=== PATIENT | female | born 1955 | race Caucasian/White ===

== ENCOUNTER 2016-05-18 09:38 | Emergency (ER) | payer OTHER ==
[2016-05-18] MEDS ORDERED: KETOROLAC 15 MG/1 ML VIAL IVP ONE (09:59)
[2016-05-18] MEDS: NORMAL SALINE 10 ML SYRINGE FLUSH IVP PRN ×3 (10:05→10:42)
--- NOTE | 2016-05-18 10:08 | PDOC ---
Hip Injury/Pain HPI - General Chief Complaint: Lower Extremity Problem/Injury Stated Complaint: RIGHT HIP PAIN Date Seen by Provider: 05/18/16 Time Seen by Provider: 10:03 - History of Present Illness Initial Comments: Patient is a very nice 60-year-old woman who presents to the emergency department with complaints of right-sided hip pain. She has history of depression GERD potential fibromyalgia and migraine headaches. She does not take any chronic pain medication. She does take several medications for prophylaxis for her migraines. She states her symptoms started about 3 days ago where she had some subtle pain more in her buttocks that in her hip on the right side. She did not have any injury or any sort of mechanical basis for this pain to start. This has slowly progressed but today has become much worse. She is denying any fever or chills. She does not have any history of inflammatory joint disorders or diseases at all. She has never injured this hip in the past. She does state that it is difficult to bear weight today but when the pain first started bearing weight was not necessarily that painful. He denies any other significant acute issues. Have you received a tetanus shot in the past 10 years?: Yes - Patient Home Medications Home Medications: Home Medications Aspirin [Aspir 81] 81 mg PO DAILY tab 09/07/13 Topiramate [Topamax] 1.5 tab PO QHS tab 09/07/13 Vitamin B Complex [Super B-50 Complex] 1 each PO DAILY cap 09/07/13 Potassium Gluconate [Potassium] 1 tab PO QD unit 01/15/14 Vilazodone Hydrochloride [Viibryd] 1 tab PO QD tab 01/15/14 Bianca [place]/Linoleic/Gamoleni [Evening [place] 1,000 Mg Sftg] 1 cap PO QD PRN cap 11/04/15 Vitamin E Mixed [Vitamin E] 1 cap PO QD cap 11/04/15 Cyclobenzaprine HCl [Flexeril] 10 mg PO TID PRN #30 tab 05/18/16 Hydrocodone/Acetaminophen [[place] 5-325 Tablet] 1 - 2 tab PO Q4H PRN #20 tab 05/01 Ibuprofen 600 mg PO TID PRN #60 ml 05/18/16 - Patient Allergies Allergies/Adverse Reactions: Allergies Allergy/AdvReac Type Severity Reaction Status Date / Time meperidine HCl [From Demerol] Allergy Severe Anaphylactic Verified 05/18/16 09: 49 reaction lorazepam Allergy Intermediate Falls and Verified 05/18/16 09:49 affects her mental status. Past Medical History - heen HEENT History: Recurrent Ear Infections, Hard of Hearing Additional HEENT History: Wears contacts. Cardiovascular History: Denies History Respiratory History: Asthma Gastrointestinal History: Denies History Genitourinary History: Denies History Endocrine History: Denies History Musculoskeletal History: Denies History Prosthesis or Implant: No Neurological History: Denies History Blood Disorders: Denies History Psychiatric History: Depression History of Sexually Transmitted Diseases: No Cancer History: Other (please comment) History of MDRO: No History of Other Communicable Diseases: No Alcohol Use: None Substance Use Type: None Previous Surgical History: Yes Type / Date of Surgery: TONSILLECTOMY, APPENDECTOMY, CHOLECYSTECTOMY, TOTAL HYSTERECTOMY Anesthesia Reactions: No Malignant Hyperthermia: No Significant Family History: Cancer, COPD, Diabetes Additional Family History: Cancer, Past Medical History Reviewed: Reviewed - No Changes ROS Constitution: REPORTS: Denies Symptoms Cardiovascular: REPORTS: Denies Cardiac Symptoms Respiratory: REPORTS: Denies Resp Symptoms Neurological: REPORTS: Denies Neuro Symptoms Hip Injury / Pain Exam - General Appearance General Appearance: POSITIVE: Cooperative, No Acute Distress - Lower Extremity Extremities: POSITIVE: Other (She has minimal tenderness with internal/external rotation of the right leg. There is actually no clear area where pressure or palpation causes a significant pain in the buttocks or hip. Certainly no symptoms in her groin. She has no pain symptoms down her leg no numbness tingling no loss of bowel or bladder continence or other signs of cauda equina syndrome either. However she does have significant pain simply at rest lying on the bed.) - HEENT HEENT: POSITIVE: Head Inspection Nml, Eyes Inspection Nml - Neck/Back Neck: POSITIVE: Normal Inspection Back: POSITIVE: Normal Inspection - Respiratory / CVS Cardiovascular: POSITIVE: Regular Rate and Rhythm, Heart Sounds Normal Respiratory: POSITIVE: No Respiratory Distress - Abdomen Abdomen: Soft: (All Quadrants), Normal Bowel Sounds: (All Quadrants), Denies Tenderness: (All Quadrants) - Skin Skin: POSITIVE: Color Normal, No Rash - Neuro/Psych Neuro / Psych: POSITIVE: Oriented x 3 Hip Injury / Pain Progress - Results Reviewed by me Xrays/CTs/US Reviewed by me: Yes Radiology Findings: No obvious fracture Lab Results Reviewed: Yes Lab Results:: Laboratory Results 05/18/16 Range/Units 10:04 WBC 6.77 (4.8-10.8) 10^3/uL RBC 4.72 (4.20-5.40) 10^6/uL Hgb 14.8 (12.0-16.0) g/dL Hct 43.0 (37.0-47.0) % MCV 91.1 (81-99) FL MCH 31.4 H (27-31) PG MCHC 34.4 (33-37) g/dL RDW Std Deviation 40.1 (39-50) fL RDW Coeff of Shaina 12.4 (11.5-14.5) % Plt Count 221 (140-350) 10*3/uL MPV 9.9 (7.4-12.2) FL Immature Gran % (Auto) 0.1 (0-5) % Neut % (Auto) 54.7 (50-80) % Lymph % (Auto) 29.0 (10-50) % [place] % (Auto) 8.4 (5-15) % Eos % (Auto) 7.4 (0-8) % Baso % (Auto) 0.4 (0-1) % Immature Gran # (Auto) 0.01 10*3/UL Neut # (Auto) 3.70 10*3/UL Lymph # (Auto) 1.96 10*3/uL [place] # (Auto) 0.57 (0.3-0.8) 10*3/UL Eos # (Auto) 0.50 10*3/UL Baso # (Auto) 0.03 10*3/UL WBC Morphology Comment Normal morphology (NORM) Plt Morphology Comment Normal morphology (NORM) RBC Morph Comment Normal morphology (NORM) ESR 10 (0-20) MM/HR Sodium 144 (135-145) meq/L Potassium 3.6 L (3.8-5.2) meq/L Chloride 111 (98-112) meq/L Carbon Dioxide 21 L (23-33) meq/L Anion Gap 12 (5-20) BUN 11 (7-22) mg/dL Creatinine 1.0 (0.50-1.20) mg/dL Estimated GFR 57 (>60 ml/min/1.73m(2)) BUN/Creatinine Ratio 11.00 (6-20) Glucose 82 (78-110) mg/dL Calculated Osmolality 295.0 H (267-292) mOsm/kg Calcium 9.3 (8.7-10.7) mg/dL Total Bilirubin 0.7 (0.3-1.2) mg/dL AST 23 (8-39) IU/L ALT 22 (9-52) IU/L Alkaline Phosphatase 95 (38-126) IU/L C-Reactive Protein < 0.5 (0.0-0.9) mg/dL Total Protein 7.7 (6.1-8.0) g/dL Albumin 4.2 (3.5-4.8) g/dL Globulin 3.5 (2.50-4.10) g/dL Albumin/Globulin Ratio 1.20 L (1.3-2.0) mg/g - Patient's Progress MDM / ED Course: This patient presents with hip pain. I see no evidence of fracture no evidence of septic arthritis or other more concerning etiology for her hip pain. She is tender towards the outside of the hip over the trochanter I think she likely has a bursitis there. Treat her conservatively of asked her to follow-up with her primary care provider in the near future to discuss her symptoms if they do not resolve fairly rapidly. Patient Care Time - Estimated PCT Patient Care Time (In Minutes): 35 Vital Signs - VS Reviewed Vital Signs Reviewed: Yes (vitals are benign at the time of my exam) Discharge Clinical Impression: Hip pain Qualifiers: Laterality: right Qualifier Code: (M25.551) Pain in right hip Trochanteric bursitis Qualifiers: Laterality: right Qualifier Code: (M70.61) Trochanteric bursitis, right hip Discharge Disposition: Discharged to Home Condition: Stable Prescriptions / Orders: Cyclobenzaprine HCl [Flexeril] 10 mg PO TID PRN #30 tab PRN Reason: Spasms Ibuprofen 600 mg PO TID PRN #60 ml PRN Reason: Inflammation Hydrocodone/Acetaminophen [[place] 5-325 Tablet] 1 - 2 tab PO Q4H PRN #20 tab PRN Reason: Pain Patient Instructions Given at Discharge: Hip Bursitis (ED) Additional Instructions: Take naproxen regularly for the next few days Follow-up with your primary care provider in the next couple of days to discuss symptoms Rest ice and elevate your leg is much as possible Consider physical therapy and/or orthopedic consultation if symptoms do not improve Use Flexeril for spasms as needed Use pain medication as needed but sparingly and cautiously if needed Air with any increase in symptoms or other concerns or issues. Follow Up With: NONE,NONE [Primary Care Provider] -
[2016-05-18 10:13] LABS: BASOPHILS # (AUTO) 0.03 10*3/UL; BASOPHILS % (AUTO) 0.4 % (0-1); EOSINOPHILS % (AUTO) 7.4 % (0-8); HEMOGLOBIN 14.8 g/dL (12.0-16.0); LYMPHOCYTES # (AUTO) 1.96 10*3/uL; MEAN CORPUSCULAR HEMOGLOBIN 31.4 PG (27-31); MEAN CORPUSCULAR HGB CONC 34.4 g/dL (33-37); MEAN CORPUSCULAR VOLUME 91.1 FL (81-99); MEAN PLATELET VOLUME 9.9 FL (7.4-12.2); MONOCYTES # (AUTO) 0.57 10*3/UL (0.3-0.8); MONOCYTES % (AUTO) 8.4 % (5-15); NEUTROPHILS % (AUTO) 54.7 % (50-80); RED BLOOD COUNT 4.72 10^6/uL (4.20-5.40)
[2016-05-18 10:19] LABS: PLATELET MORPHOLOGY COMMENT NORMAL MORPHOLOGY (NORM); RBC MORPHOLOGY COMMENT NORMAL MORPHOLOGY (NORM); WBC MORPHOLOGY COMMENT NORMAL MORPHOLOGY (NORM)
[2016-05-18 10:23] VITALS: RESP 19; TEMP 98.6
[2016-05-18 10:25] LABS: BLOOD UREA NITROGEN 11 mg/dL (7-22); CALCIUM 9.3 mg/dL (8.7-10.7); EST GLOMERULAR FILTRATION 57 (>60 ml/min/1.73m(2)); SERUM ALBUMIN 4.2 g/dL (3.5-4.8)
[2016-05-18 10:27] LABS: C-REACTIVE PROTEIN < 0.5 mg/dL (0.0-0.9)
[2016-05-18] MEDS ORDERED: MORPHINE SULFATE 4 MG/1 ML IVP ONE (10:27)
[2016-05-18 11:00] LABS: ERYTHROCYTE SEDIMENTATION RATE 10 MM/HR (0-20)
--- NOTE | 2016-05-18 11:20 | DI ---
AP PELVIS and RIGHT HIP, 05/18/2016 9:54 AM: Clinical History: Right hip pain and buttock pain. Previous Exam: None at this facility. There is no soft tissue abnormality. The bony structures of the pelvis are normal, although the pelvi s has an anthropoid configuration for the transverse diameter is much smaller than the AP diameter of the pelvis. 2 views of the right hip show no acute abnormality. There is acetabular over coverage al nishant the superior and lateral margin, and there is asphericity of the femoral head with joint space na rrowing. A similar appearance is present in the left hip. 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 Readin. 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 2. The AP pelvis view is unremarkable. The AP diameter of the pelvis is substantially greater than t he transverse dimension.
== END 2016-05-18 11:45 | disposition home or self-care (01) ==
LOC: ER 09:38
DX: M70.61 Trochanteric bursitis, right hip (principal); M25.551 Pain in right hip
CPT/HCPCS: 73502; 80053; 85025; 85652; 86140; 96374; 96375; 99283; J1885; J2270

== ENCOUNTER → 2016-08-25 | Outpatient (CLI) | payer OTHER ==
[2016-08-25 17:05] LABS: BASOPHILS # (AUTO) 0.04 10*3/UL; BASOPHILS % (AUTO) 0.4 % (0-1); EOSINOPHILS # (AUTO) 0.42 10*3/UL; EOSINOPHILS % (AUTO) 4.7 % (0-8); HEMATOCRIT 44.7 % (37.0-47.0); HEMOGLOBIN 15.8 g/dL (12.0-16.0); LYMPHOCYTES # (AUTO) 2.53 10*3/uL; MEAN CORPUSCULAR HEMOGLOBIN 31.9 PG (27-31); MEAN CORPUSCULAR HGB CONC 35.3 g/dL (33-37); MEAN CORPUSCULAR VOLUME 90.3 FL (81-99); MEAN PLATELET VOLUME 10.8 FL (7.4-12.2); MONOCYTES # (AUTO) 0.84 10*3/UL (0.3-0.8); MONOCYTES % (AUTO) 9.3 % (5-15); NEUTROPHILS # (AUTO) 5.17 10*3/UL; NEUTROPHILS % (AUTO) 57.4 % (50-80); RED BLOOD COUNT 4.95 10^6/uL (4.20-5.40)
[2016-08-25 17:07] LABS: PLATELET MORPHOLOGY COMMENT NORMAL MORPHOLOGY (NORM); RBC MORPHOLOGY COMMENT NORMAL MORPHOLOGY (NORM); WBC MORPHOLOGY COMMENT NORMAL MORPHOLOGY (NORM)
[2016-08-25 17:29] LABS: VITAMIN D 25-HYDROXY 37.5 NG/ML (30-100)
== END ==
LOC: MOB LAB 15:44
PROVIDERS: ATTEND Nurse Practitioner Family
DX: N89.8 Other specified noninflammatory disorders of vagina (principal); E55.9 Vitamin D deficiency, unspecified; R53.83 Other fatigue; R60.0 Localized edema
CPT/HCPCS: 82306; 84443; 85025; 87480; 87510; 87660

== ENCOUNTER → 2016-09-02 | Outpatient (CLI) | payer OTHER ==
[2016-09-02 11:25] LABS: BILIRUBIN,URINE NEGATIVE (NEG); CLARITY,URINE Slightly Cloudy (CLEAR); COLOR,URINE BROWN; GLUCOSE, URINE (UA) NEGATIVE (NEG); NITRATE,URINE NEGATIVE (NEG); OCCULT BLOOD,URINE NEGATIVE (NEG); PROTEIN,URINE NEGATIVE (NEG); UROBILINOGEN,URINE 0.2 mg/dL (0.2)
[2016-09-02 11:31] LABS: RBC,URINE 0-3 /hpf; SQUAMOUS EPITHELIAL CELL,UR FEW; URINE SAMPLE TYPE CLEAN CATCH URINE
[2016-09-02 11:32] LABS: BACTERIA,URINE FEW; URINE CRYSTALS FEW
== END ==
LOC: MOB LAB 10:33
PROVIDERS: ATTEND Nurse Practitioner Family
DX: N39.0 Urinary tract infection, site not specified (principal); R82.99 Other abnormal findings in urine
CPT/HCPCS: 81001; 87088